=== PATIENT | female | born 1960 | race Asian ===

== ENCOUNTER 2017-03-29 11:06 | Day surgery (SDC) | payer OTHER ==
[2017-03-29] MEDS ORDERED: LACTATED RINGERS 1,000 ML IV ONE ×2 (11:37→12:49)
[2017-03-29] MEDS ORDERED: fentaNYL 100 MCG/2 ML VIAL IVP ONE (12:39)
[2017-03-29] MEDS ORDERED: MIDAZOLAM 2 MG/2 ML VIAL IVP ONE (12:39)
[2017-03-29 14:03] VITALS: BP 101/54
== END 2017-03-29 11:07 | disposition home or self-care (01) ==
LOC: SDS 11:06
PROVIDERS: ATTEND Surgery
PROC: 0DBL8ZX Excision of Transverse Colon, Via Natural or Artificial Opening Endoscopic, Diagnostic (ICD-10-PCS; principal; 2017-03-29 12:00)
DX: Z12.11 Encounter for screening for malignant neoplasm of colon (principal); D12.3 Benign neoplasm of transverse colon; K64.8 Other hemorrhoids
CPT/HCPCS: 45380; J7120